=== PATIENT | female | born 1960 | race Caucasian/White ===

== ENCOUNTER 2016-10-30 08:08 | Emergency (ER) | payer OTHER ==
[~2016-10-30] VITALS: Ht 157.4 cm; Wt 59.0 kg
[~2016-10-30 08:08] MED LIST: ABILIFY5 MG PO; HYDROCODONE BIT1 T11 PO; KLONOPIN1 MG PO; LEVAQUIN750 M1 PO; Motrin,Rufen800 MG PO; NAPROSYN500 MG PO; NEURONTIN300 MG PO; PREDNISONE10 MG PO; PREDNISONE50 MG PO; PRILOSEC20 MG PO; PRILOSEC40 M1 PO; PROVENTIL0.09 MG/A1 INH; REMERON15 M2 PO; ROBAXIN500 M1 PO; SEROQUEL300 MG PO; SOMA350 MG PO
[2016-10-30] MEDS ORDERED: REMERON15 M2 PO (08:15)
[2016-10-30] MEDS ORDERED: NEURONTIN400 MG PO (08:15)
[2016-10-30] MEDS ORDERED: LORTAB 5/3251 TAB PO (08:16)
[2016-10-30] MEDS ORDERED: KLONOPIN0.5 MG PO (08:16)
[2016-10-30] MEDS ORDERED: ZANTAC 150150 MG PO (08:18)
[2016-10-30] MEDS ORDERED: ROBAXIN-750750 MG PO (08:18)
[2016-10-30 09:04] LABS: BASO # 0.1 10*3/uL (0.0-0.1); BASO % 0.7 % (0.0-1.0); EOS # 0.4 10*3/uL (0.0-0.4); EOS % 5.2 % (1.0-4.0); HEMATOCRIT 42.3 % (37.0-47.0); HEMOGLOBIN 14.5 g/dl (12.0-16.0); LYMPH # 3.2 10*3/uL (1.3-4.4); LYMPH % 45.4 % (27.0-41.0); MEAN CORPUSCULAR HGB 30.9 pg (27.0-31.0); MEAN CORPUSCULAR HGB CONC 34.3 g/dl (33.0-37.0); MEAN PLATELET VOLUME 9.6 fl (9.6-12.3); MONO # 0.7 10*3/uL (0.1-1.0); MONO % 10.1 % (3.0-9.0); NEUT # 2.8 10*3/uL (2.3-7.9); NEUT % 38.5 % (47.0-73.0); PLATELET COUNT AUTOMATED 172 10*3/uL (130-400); WHITE BLOOD COUNT 7.1 10*3/uL (4.8-10.8)
[2016-10-30 09:13] LABS: INTERNATIONAL NORM RATIO 0.9 (2.0-3.5); PROTHROMBIN TIME 9.6 SECONDS (9.0-12.4)
[2016-10-30 09:21] LABS: ALBUMIN 3.9 gm/dl (3.1-4.5); ALKALINE PHOSPHATASE 85 U/L (45-117); BILIRUBIN, TOTAL 0.4 mg/dl (0.2-1.0); BUN 10 mg/dl (7-24); C-REACTIVE PROTEIN 0.34 MG/DL (0-0.3); CARBON DIOXIDE 31 mmol/L (21-32); CHLORIDE 107 mmol/L (98-107); CKMB 2.7 ng/ml (0.5-3.6); CPK 198 U/L (26-192); EST GLOM FILT AFRICAN AMERICAN > 60 ml/min; GLUCOSE 84 mg/dL (65-99); MAGNESIUM 2.1 mg/dL (1.5-2.1); POTASSIUM 3.8 mmol/L (3.5-5.1); SGOT/AST 47 IU/L (3-35); SGPT/ALT 86 U/L (12-78); SODIUM 143 mmol/L (136-145); TOTAL PROTEIN 7.4 gm/dL (6.4-8.2)
[2016-10-30 09:22] LABS: TROPONIN I < 0.015 ng/ml (<0.045)
[2016-10-30] MEDS ORDERED: PREDNISONE20 M1 PO (09:45)
== END 2016-10-30 09:52 | disposition home or self-care (01) ==
LOC: ED 08:08
PROVIDERS: Emergency Medicine
DX: J45.21 Mild intermittent asthma with (acute) exacerbation (principal); F17.200 Nicotine dependence, unspecified, uncomplicated; K21.9 Gastro-esophageal reflux disease without esophagitis; Z79.899 Other long term (current) drug therapy; Z88.8 Allergy status to other drugs, medicaments and biological substances

== ENCOUNTER 2018-06-23 13:18 | Emergency (ER) | payer OTHER ==
[~2018-06-23] VITALS: Ht 160 cm; Wt 63.0 kg
[~2018-06-23 13:18] MED LIST changes: +KLONOPIN0.5 MG PO; +LORTAB 5/3251 TAB PO; +NEURONTIN400 MG PO; +PREDNISONE20 M1 PO; +ROBAXIN-750750 MG PO; +ZANTAC 150150 MG PO
== END 2018-06-23 15:06 | disposition home or self-care (01) ==
LOC: ED 13:18
DX: S93.401A Sprain of unspecified ligament of right ankle, initial encounter (principal); Z88.8 Allergy status to other drugs, medicaments and biological substances; Z79.899 Other long term (current) drug therapy; Z90.49 Acquired absence of other specified parts of digestive tract; W10.8XXA Fall (on) (from) other stairs and steps, initial encounter; Y93.89 Activity, other specified; Y92.89 Other specified places as the place of occurrence of the external cause; Y99.8 Other external cause status

== ENCOUNTER 2019-05-26 09:39 | Emergency (ER) | payer OTHER ==
[~2019-05-26] VITALS: Ht 157.4 cm; Wt 62.6 kg
--- NOTE | ~2019-05-26 | EKG ---
[place], [place] ELECTROCARDIOGRAM REPORT NAME: REECE PUGH UNIT #: [id number] ROOM: DOCTOR: EPIPHANY DRAFT REPORT BIRTHDATE: [address] [facility] Test Date: 2019-05-26 Test Time: 09:59:31 Pat Name: REECE PUGH Department: Room: [facility] Gender: F Personnel Assistant: : 1960 Requested By: JAZLYN HENDERSON DNP Order Number: [id number] Reading MD: Fredrick Vera MD Measurements Intervals [place] Rate: 78 P: 47 NM: 132 QRS: 24 QRSD: 82 T: 55 QT: 355 QTc: 405 Interpretive Statements Sinus rhythm Baseline wander in lead(s) I,III,aVL,aVF Electronically Signed On 05-27-2019 9:19:20 PDT by Fredrick Vera MD CM:EKGRPT:ELECTROCARDIOGRAM REPORT 8 8 JAZLYN HENDERSON DNP EPIPHANY DRAFT REPORT JAZLYN HENDERSON DNP
[2019-05-26 09:41] VITALS: BP 153/79
[2019-05-26 10:16] LABS: BASO # 0.1 10*3/uL (0.0-0.1); BASO % 0.7 % (0.0-1.0); EOS # 0.4 10*3/uL (0.0-0.4); EOS % 3.3 % (1.0-4.0); HEMATOCRIT 43.7 % (37.0-47.0); HEMOGLOBIN 14.5 g/dl (12.0-16.0); LYMPH # 2.6 10*3/uL (1.3-4.4); LYMPH % 24.6 % (27.0-41.0); MEAN CELL VOLUME 93.6 fl (81.0-99.0); MEAN CORPUSCULAR HGB CONC 33.2 g/dl (33.0-37.0); MONO # 0.8 10*3/uL (0.1-1.0); MONO % 7.8 % (3.0-9.0); NEUT # 6.8 10*3/uL (2.3-7.9); NEUT % 63.3 % (47.0-73.0); PLATELET COUNT AUTOMATED 265 10*3/uL (130-400); RED BLOOD COUNT 4.67 10*6/uL (4.10-5.10); RED CELL DISTRI WIDTH 12.7 % (0-14.5); WHITE BLOOD COUNT 10.7 10*3/uL (4.8-10.8)
[2019-05-26 10:25] LABS: INTERNATIONAL NORM RATIO 0.9 (2.0-3.5)
[2019-05-26 10:30] LABS: ALBUMIN 3.8 gm/dl (3.1-4.5); ALKALINE PHOSPHATASE 76 U/L (45-117); BUN 12 mg/dl (7-24); CHLORIDE 109 mmol/L (98-107); CREATININE 0.81 mg/dL (0.55-1.02); LIPASE 217 U/L (73-393); SGOT/AST 23 IU/L (3-35); SGPT/ALT 29 U/L (12-78); SODIUM 141 mmol/L (136-145); TOTAL PROTEIN 7.8 gm/dL (6.4-8.2)
[2019-05-26 10:33] LABS: TROPONIN I < 0.015 ng/ml (<0.045)
[2019-05-26 10:54] VITALS: BP 151/84
--- NOTE | 2019-05-26 11:51 | NUR ---
SIGNED AMA. DOES NOT WANT ADMITTED NOW. SHE WAS ENCOURAGED TO RETURN IF WORSE IN ANY WAY AND TO FOLLOW UP WITH HER DOCTOR.
== END 2019-05-26 11:52 | disposition left against medical advice (07) ==
LOC: ED 09:39 → EDHOLD 11:41 → ED 11:41
PROVIDERS: Nurse Practitioner Family
DX: R55 Syncope and collapse (principal); J45.909 Unspecified asthma, uncomplicated; G89.29 Other chronic pain; K21.9 Gastro-esophageal reflux disease without esophagitis; Z88.8 Allergy status to other drugs, medicaments and biological substances; Z79.899 Other long term (current) drug therapy

== ENCOUNTER 2019-10-24 06:58 | Emergency (ER) | payer OTHER ==
[~2019-10-24] VITALS: Ht 157.4 cm; Wt 61.2 kg
[2019-10-24] MEDS ORDERED: PREDNISONE50 MG PO (08:01)
[2019-10-24] MEDS ORDERED: PROVENTIL HFA6.7 GM INH (08:01)
== END 2019-10-24 08:04 | disposition home or self-care (01) ==
LOC: ED 06:58
DX: J44.1 Chronic obstructive pulmonary disease with (acute) exacerbation (principal); F41.9 Anxiety disorder, unspecified; M19.90 Unspecified osteoarthritis, unspecified site; K21.9 Gastro-esophageal reflux disease without esophagitis; F31.9 Bipolar disorder, unspecified; Z88.8 Allergy status to other drugs, medicaments and biological substances; Z79.899 Other long term (current) drug therapy

== ENCOUNTER → 2019-11-16 | Outpatient (CLI) | payer OTHER ==
[~2019-11-16] MED LIST changes: +PROVENTIL HFA6.7 GM INH
== END | disposition home or self-care (01) ==
LOC: RAD 08:02
DX: M47.817 Spondylosis without myelopathy or radiculopathy, lumbosacral region (principal); M48.07 Spinal stenosis, lumbosacral region; R10.31 Right lower quadrant pain; R10.32 Left lower quadrant pain

== ENCOUNTER → 2020-05-03 | Outpatient (CLI) | payer OTHER | END | disposition home or self-care (01) | LOC: RAD 08:34 | PROVIDERS: ATTEND Nurse Practitioner Family | DX: M17.11 Unilateral primary osteoarthritis, right knee (principal); M25.761 Osteophyte, right knee ==

== ENCOUNTER → 2020-07-24 | Outpatient (CLI) | payer OTHER | END | disposition home or self-care (01) | LOC: MRI 08:22 | PROVIDERS: ATTEND Family Medicine | DX: S83.241A Other tear of medial meniscus, current injury, right knee, initial encounter (principal); M17.11 Unilateral primary osteoarthritis, right knee; M85.661 Other cyst of bone, right lower leg; M25.461 Effusion, right knee; X58.XXXA Exposure to other specified factors, initial encounter; Y93.89 Activity, other specified; Y92.89 Other specified places as the place of occurrence of the external cause; Y99.8 Other external cause status ==

== ENCOUNTER 2022-02-15 08:07 | Emergency (ER) | payer OTHER ==
[~2022-02-15] VITALS: Ht 157.4 cm; Wt 63.5 kg
[2022-02-15] MEDS ORDERED: HYDROCODONE-AC1 EAC1 PO (08:27)
[2022-02-15] MEDS ORDERED: ANORO ELLIPTA1 EACH IH (08:28)
[2022-02-15] MEDS ORDERED: AMLODIPINE BES2.5 MG PO (08:28)
[2022-02-15] MEDS ORDERED: ARIPIPRAZOLE10 MG PO (08:29)
[2022-02-15] MEDS ORDERED: AIRDUO DIGIHAL1 EACH NAS (08:30)
[2022-02-15] MEDS ORDERED: GABAPENTIN600 MG PO (08:31)
[2022-02-15] MEDS ORDERED: BIOTIN1000 MC1 PO (08:32)
[2022-02-15] MEDS ORDERED: TORSEMIDE10 MG PO (08:33)
[2022-02-15] MEDS ORDERED: PREDNISONE10 MG PO (08:48)
== END 2022-02-15 09:16 | disposition home or self-care (01) ==
LOC: ED 08:07
DX: M54.31 Sciatica, right side (principal); Z88.8 Allergy status to other drugs, medicaments and biological substances; Z79.899 Other long term (current) drug therapy; Z98.890 Other specified postprocedural states; Z90.49 Acquired absence of other specified parts of digestive tract; Z90.89 Acquired absence of other organs

== ENCOUNTER 2022-03-14 15:51 | Emergency (ER) | payer OTHER ==
[~2022-03-14] VITALS: Wt 63.5 kg
[~2022-03-14 15:51] MED LIST changes: +AIRDUO DIGIHAL1 EACH NAS; +AMLODIPINE BES2.5 MG PO; +ANORO ELLIPTA1 EACH IH; +ARIPIPRAZOLE10 MG PO; +BIOTIN1000 MC1 PO; +GABAPENTIN600 MG PO; +HYDROCODONE-AC1 EAC1 PO; +TORSEMIDE10 MG PO
[2022-03-14 16:28] LABS: BASO # 0.1 10*3/uL (0.0-0.1); BASO % 1.2 % (0.0-1.0); EOS # 0.5 10*3/uL (0.0-0.4); EOS % 8.9 % (1.0-4.0); HEMATOCRIT 38.6 % (37.0-47.0); LYMPH % 33.6 % (27.0-41.0); MEAN CELL VOLUME 88.3 fl (81.0-99.0); MEAN CORPUSCULAR HGB 30.4 pg (27.0-31.0); MEAN CORPUSCULAR HGB CONC 34.5 g/dl (33.0-37.0); MEAN PLATELET VOLUME 9.5 fl (9.6-12.3); MONO # 0.7 10*3/uL (0.1-1.0); MONO % 12.1 % (3.0-9.0); NEUT # 2.6 10*3/uL (2.3-7.9); PLATELET COUNT AUTOMATED 216 10*3/uL (130-400); RED BLOOD COUNT 4.37 10*6/uL (4.10-5.10); RED CELL DISTRI WIDTH 13.6 % (0-14.5)
[2022-03-14 16:54] LABS: ACT PARTIAL THROMBO TIME 25.7 SECONDS (20.0-32.1); INTERNATIONAL NORM RATIO 0.9 (2.0-3.5)
[2022-03-14 17:01] LABS: ALKALINE PHOSPHATASE 69 U/L (45-117); BUN 14 mg/dl (7-24); CHLORIDE 109 mmol/L (98-107); CREATININE 0.87 mg/dL (0.55-1.02); LIPASE 167 U/L (73-393); POTASSIUM 3.6 mmol/L (3.5-5.1); SGOT/AST 25 IU/L (3-35); SGPT/ALT 33 U/L (12-78); SODIUM 142 mmol/L (136-145); TOTAL PROTEIN 6.8 gm/dL (6.4-8.2)
[2022-03-14] MEDS ORDERED: PREDNISONE10 MG PO (18:30)
[2022-03-14] MEDS ORDERED: ZITHROMAX250 MG PO (18:30)
== END 2022-03-14 19:07 | disposition home or self-care (01) ==
LOC: ED 15:51
PROVIDERS: Emergency Medicine
DX: J44.1 Chronic obstructive pulmonary disease with (acute) exacerbation (principal); Z88.8 Allergy status to other drugs, medicaments and biological substances; Z79.899 Other long term (current) drug therapy; Z98.890 Other specified postprocedural states; Z90.49 Acquired absence of other specified parts of digestive tract; Z90.89 Acquired absence of other organs

== ENCOUNTER 2022-04-20 08:52 | Emergency (ER) | payer OTHER ==
[~2022-04-20] VITALS: Ht 157.4 cm; Wt 63.5 kg
[~2022-04-20 08:52] MED LIST changes: +ZITHROMAX250 MG PO
[2022-04-20] MEDS ORDERED: ZITHROMAX250 MG PO (09:36)
[2022-04-20] MEDS ORDERED: PREDNISONE50 MG PO (09:36)
== END 2022-04-20 09:31 | disposition home or self-care (01) ==
LOC: ED 08:52
DX: J44.1 Chronic obstructive pulmonary disease with (acute) exacerbation (principal); Z88.8 Allergy status to other drugs, medicaments and biological substances; Z79.899 Other long term (current) drug therapy; Z90.89 Acquired absence of other organs; Z90.49 Acquired absence of other specified parts of digestive tract; Z98.890 Other specified postprocedural states; F17.200 Nicotine dependence, unspecified, uncomplicated

== ENCOUNTER 2023-02-01 13:03 | Emergency (ER) | payer OTHER ==
[~2023-02-01] VITALS: Ht 157.4 cm; Wt 62.6 kg
[2023-02-01] MEDS ORDERED: HYDROCODONE-AC1 EAC1 PO (14:37)
== END 2023-02-01 14:41 | disposition home or self-care (01) ==
LOC: ED 13:03
DX: M25.561 Pain in right knee (principal); F41.9 Anxiety disorder, unspecified; F31.9 Bipolar disorder, unspecified; K21.9 Gastro-esophageal reflux disease without esophagitis; J44.9 Chronic obstructive pulmonary disease, unspecified; M19.90 Unspecified osteoarthritis, unspecified site; Z88.8 Allergy status to other drugs, medicaments and biological substances; Z90.49 Acquired absence of other specified parts of digestive tract; Z98.890 Other specified postprocedural states

== ENCOUNTER 2025-01-10 17:30 | Emergency (ER) | payer OTHER ==
[~2025-01-10] VITALS: Ht 157.4 cm; Wt 65.8 kg
[2025-01-10] MEDS ORDERED: cloNIDine Hydrochloride 0.1 MG TAB PO ONE (17:50)
== END 2025-01-10 18:44 | disposition home or self-care (01) ==
LOC: ED 17:30
DX: I16.0 Hypertensive urgency (principal); J45.909 Unspecified asthma, uncomplicated; F41.9 Anxiety disorder, unspecified; F31.9 Bipolar disorder, unspecified; K21.9 Gastro-esophageal reflux disease without esophagitis; J44.9 Chronic obstructive pulmonary disease, unspecified; Z79.899 Other long term (current) drug therapy; Z88.6 Allergy status to analgesic agent; Z88.8 Allergy status to other drugs, medicaments and biological substances; Z90.49 Acquired absence of other specified parts of digestive tract; Z98.890 Other specified postprocedural states

== ENCOUNTER 2025-01-18 07:37 | Emergency (ER) | payer OTHER ==
[~2025-01-18] VITALS: Ht 157.4 cm; Wt 65.8 kg
== END 2025-01-18 08:39 | disposition home or self-care (01) ==
LOC: ED 07:37
DX: I10 Essential (primary) hypertension (principal); J45.909 Unspecified asthma, uncomplicated; F31.9 Bipolar disorder, unspecified; F41.9 Anxiety disorder, unspecified; Z79.899 Other long term (current) drug therapy; Z88.6 Allergy status to analgesic agent; Z88.8 Allergy status to other drugs, medicaments and biological substances; Z90.49 Acquired absence of other specified parts of digestive tract; Z91.199 Patient's noncompliance with other medical treatment and regimen due to unspecified reason; Z98.890 Other specified postprocedural states